=== PATIENT | female | born 2000 | race Two or more races ===

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

== ENCOUNTER 2020-06-15 01:23 | Emergency (ER) | payer OTHER ==
[~2020-06-15] VITALS: Ht 149.9 cm; Wt 52.6 kg
[2020-06-15] MEDS ORDERED: KETO10TA2 PO (03:59)
[2020-06-15] MEDS ORDERED: ORPHENADRINE C100 MG PO (03:59)
[2020-06-15] MEDS ORDERED: ACETAMINOPHEN500 M1 (04:47)
== END 2020-06-15 04:34 ==
LOC: ER 01:23
DX: S73.191A Other sprain of right hip, initial encounter (principal); X50.9XXA Other and unspecified overexertion or strenuous movements or postures, initial encounter; Y93.89 Activity, other specified; Y92.89 Other specified places as the place of occurrence of the external cause; Y99.8 Other external cause status

== ENCOUNTER 2020-06-26 09:10 | Outpatient (CLI) | payer OTHER ==
[~2020-06-26 09:10] MED LIST: ACETAMINOPHEN500 M1; KETO10TA2 PO; ORPHENADRINE C100 MG PO
== END 2020-06-26 09:24 | disposition home or self-care (01) ==
LOC: SONOGRAMA 09:10
PROVIDERS: ATTEND Internal Medicine Gastroenterology
DX: R10.84 Generalized abdominal pain (principal)